=== PATIENT | male | born 1980 | race Hispanic/Latino ===

== ENCOUNTER → 2021-01-19 | Outpatient (CLI) | payer OTHER ==
[~2021-01-19] MED LIST: CIPROFLOXACIN500 MG PO; CYCLOBENZAPRINE10 MG PO; KETOROLAC TROME10 MG PO; MOBIC15 MG PO; NORCO 5-325 TA1 EACH PO; PRILOSEC20 MG PO; VALIUM10 MG PO; [UNRECOGNIZED DRUG - OTHER]; [UNRECOGNIZED DRUG - OTHER] PO
== END ==
LOC: RAD 11:05
PROVIDERS: ATTEND Urology
DX: R31.21 Asymptomatic microscopic hematuria (principal)
CPT/HCPCS: 74018

== ENCOUNTER → 2025-06-30 | Outpatient (REF) | payer OTHER ==
[~2025-06-30] MED LIST changes: +[UNRECOGNIZED DRUG - OTHER] PO
== END ==
LOC: MRI 12:33
PROVIDERS: ATTEND Orthopaedic Surgery Adult Reconstructive Orthopaedic Surgery
DX: S83.241A Other tear of medial meniscus, current injury, right knee, initial encounter (principal); M23.8X1 Other internal derangements of right knee

== ENCOUNTER → 2025-07-01 | Day surgery (SDC) | payer OTHER ==
[~2025-07-01] MED LIST changes: +FENTANYL CITRATE/PF 100MCG/2 ML INJ ONE; +HYOSCYAMINE SULFATE 0.5 MG/ML INJ ONE; +LACTATED RINGER'S 1,000 ML ONE; +LIDOCAINE HCL 2% LOCAL INJ 5 ML SDV VIAL INJ ONE; +MIDAZOLAM HCL 2 MG/2 ML VIAL ONE; +ONDANSETRON HCL INJ 2MG/ML 2ML 2 MG/ML VIAL ONE; +PROPOFOL IV EMULSION 50 ML IV ONE
[2025-07-01 13:40] VITALS: BP 127/88; PULSE 81; RESP 16; O2SAT 98
== END | disposition home or self-care (01) ==
LOC: OR 11:28
PROVIDERS: ATTEND Internal Medicine Gastroenterology
DX: Z12.11 Encounter for screening for malignant neoplasm of colon (principal); K64.8 Other hemorrhoids; R10.84 Generalized abdominal pain; K21.9 Gastro-esophageal reflux disease without esophagitis; E66.9 Obesity, unspecified; Z01.810 Encounter for preprocedural cardiovascular examination; Z68.32 Body mass index [BMI] 32.0-32.9, adult; Z71.3 Dietary counseling and surveillance
CPT/HCPCS: 45378; 93005; J1980; J2003; J2250; J2405